=== PATIENT | female | born 1975 ===

== ENCOUNTER 2024-12-05 15:19 | Outpatient (REF) | payer BC, SELFPAY ==
[2024-12-05 16:36] LABS: Iron 100 ug/dL (50-170)
[2024-12-05 16:40] LABS: ALT 37 U/L (14-59); AST 22 U/L (15-37); Albumin 4.1 g/dL (3.4-5.0); Alkaline Phosphatase 107 U/L (46-116); Anion Gap 10.8 mmol/L (3-11); BUN 10 mg/dL (7-18); CO2 24.2 mmol/L (21.0-32.0); CREATININE 0.8 mg/dL (0.55-1.02); Calcium 9.4 mg/dL (8.5-10.1); Calculated LDL 161 mg/dL (<100); Chloride 104 mmol/L (98-107); Cholesterol 238 mg/dL (<200); Estimated GFR 90.83 (mL/min/1.73m2); Ferritin 52 ng/mL (8-252); Glucose 106 mg/dL (74-106); HDL Cholesterol 61 mg/dL (>or=50); Potassium 4.6 mmol/L (3.5-5.1); Sodium 139 mmol/L (136-145); Total Protein 7.7 g/dL (6.4-8.2); Triglyceride 82 mg/dL (<150)
[2024-12-05 17:42] LABS: Bilirubin, Total 0.5 mg/dL (0.2-1.0)
== END 2024-12-05 15:20 | disposition home or self-care (01) ==
LOC: NCHCN 15:19
PROVIDERS: Visit Provider Physician Assistant
DX: D50.9 Iron deficiency anemia, unspecified (principal); K76.0 Fatty (change of) liver, not elsewhere classified
CPT/HCPCS: 80053; 80061; 82728; 83540